=== PATIENT | male | born 1965 | race Two or more races ===

== ENCOUNTER 2020-08-21 18:30 | Emergency (ER) | payer OTHER ==
[~2020-08-21] VITALS: Ht 172.7 cm; Wt 68.0 kg
--- NOTE | 2020-08-21 18:53 | Emergency Room Report ---
History of Present Illness General Chief Complaint: Upper Extremity Injury Source: Patient Present Illness HPI 54-year-old male presents to the emergency department complaining of localized 4 out of 10 severity pain to the left ring finger since yesterday. Patient reports that a gas tank at work fell on his hand and most of the pressure was placed on his left ring finger and left pinky finger. Patient denies any pain in the pinky. Patient denies paresthesias. Patient reports difficulty with straightening the finger completely. He reports pain exacerbation upon attempts of flexing the affected finger. He denies bruising he reports some swelling. He denies open wounds or bleeding. Patient is right-hand dominant. No other aggravating or relieving factors at this time. Allergies: Coded Allergies: No Known Allergies (Unverified , 08/21/20) COVID-19 Screening Contact w/high risk pt: No Experienced COVID-19 symptoms?: No COVID-19 Testing performed TEST DESKMAN: No Patient History Past Medical History: see triage record Past Surgical History: none Pertinent Family History: none Reviewed Nursing Documentation: PMH: Agreed; PSxH: Agreed Nursing Documentation-PMH Past Medical History: No Stated History Review of Systems All Other Systems: negative except mentioned in HPI Physical Exam Vital Signs Date Time Temp Pulse Resp B/P (MAP) Pulse Ox O2 Delivery O2 Flow Rate FiO2 08/21/20 18:36 98.6 64 16 137/92 (107) 98 Room Air Sp02 EP Interpretation: reviewed, normal General Appearance: no apparent distress, alert, GCS 15, non-toxic Head: normocephalic, atraumatic Eyes: bilateral eye normal inspection, bilateral eye PERRL ENT: hearing grossly normal, normal voice Neck: full range of motion Respiratory: lungs clear, normal breath sounds, speaking full sentences Cardiovascular #1: regular rate, rhythm, normal capillary refill Musculoskeletal: normal range of motion, gait/station normal, tender - Tenderness to palpation to the DIP joint of the left ring finger. There are some swelling noted. Finger is in a fixed semiflex position at the DIP joint. Patient is unable to fully extend his finger on his own. NVI, other - Pt. with swan neck deformity. Neurologic: alert, motor strength/tone normal, oriented x3, sensory intact, responsive, speech normal Psychiatric: judgement/insight normal Lymphatic: no adenopathy Medical Decision Making PA Attestation Dr. Lagunas is my supervising Physician whom patient management has been discussed with. Diagnostic Impression: Primary Impression: Tendon injury ER Course 54-year-old male presents to the emergency department complaining of localized 4 out of 10 severity pain to the left ring finger since yesterday. Patient reports that a gas tank at work fell on his hand and most of the pressure was placed on his left ring finger and left pinky finger. Patient denies any pain in the pinky. Patient denies paresthesias. Patient reports difficulty with straightening the finger completely. He reports pain exacerbation upon attempts of flexing the affected finger. He denies bruising he reports some swelling. He denies open wounds or bleeding. Patient is right-hand dominant. No other aggravating or relieving factors at this time. Ddx considered but are not limited to Fracture, dislocation, contusion, Sprain/Strain/Spasm,Tendon injury just to name a few. Vital signs: are WNL, pt. is afebrile H&PE are most consistent with musculoskeletal injury will perform imaging to r/o fractures/dislocations. --Highly suspect tendon injury at the DIP joint of the left fourth digit as digit appears to be an swan neck deformity. ORDERS: - X-ray Left fingers 3 views - negative for fx, Dislocation, or significant soft tissue injury, per preliminary read in ED, and signed by NOLAN Scruggs, my supervising physician has reviewed, and agrees with my interpret ation. ED INTERVENTIONS: -Patient declines pain medication at this time. - Finger Splint applied to the left ring finger by network technology instructor. Pt. remains neurovascularly intact. DISCHARGE: At this time pt. is stable for d/c to home. Will provide printed patient care instructions, and any necessary prescriptions. Care plan and follow up instructions have been discussed with the patient prior to discharge. Other X-Ray Diagnostic Results Other X-Ray Diagnostic Results : X-Ray ordered: Left Fingers # of Views/Limited Vs Complete: 3 View Indication: Pain EP Interpretation: Yes NOLAN Xray: Interpretation reviewed, by supervising MD, and agrees with findings. Interpretation: no dislocation, no soft tissue swelling, no fractures Impression: No acute disease Electronically Signed by: Alida Scruggs PA-C Last Vital Signs Date Time Temp Pulse Resp B/P (MAP) Pulse Ox O2 Delivery O2 Flow Rate FiO2 08/21/20 18:36 98.6 64 16 137/92 (107) 98 Room Air Disposition: HOME, SELF-CARE Condition: Stable Scripts Ibuprofen* (MOTRIN*) 600 Mg Tablet 600 MG ORAL THREE TIMES A DAY, #20 TAB Prov: Alida Scruggs 08/21/20 Acetaminophen With Codeine (T#3) (TYLENOL #3 TAB*) Y Tab 1 TAB ORAL Q6H PRN for For Pain, #12 TAB Prov: Alida Scruggs 08/21/20 Referrals: [facility] Patient Instructions: Tendon Injury Additional Instructions: Take medications as directed. Follow up with an COUNTY ADMINISTRATOR in 3-5 days, even if your symptoms have resolved. If symptoms persist MRI may be required at the discretion of your PCP or Ortho Specialist. --Please review list of primary care clinics, if you do not already have a primary care provider who can give you an Orthopedic Referral. Return sooner to ED if new symptoms occur, or current symptoms become worse. Do not drink alcohol, drive, or operate heavy machinery while taking [place] as this may cause drowsiness. - Please note that this Emergency Department Report was dictated using [employer] supervisor technology software, occasionally this can lead to errone ous entry secondary to interpretation by the dictation equipment. Alida Scruggs Aug 21, 2020 18:53
[2020-08-21] MEDS ORDERED: IBUPROFEN600 M1 ORAL (19:21)
[2020-08-21] MEDS ORDERED: ACETAMINOPHEN-1 EAC1 ORAL (19:21)
--- NOTE | 2020-08-21 19:23 | NUR ---
ED Nurse Note: PT waked in from home, axox4, walks with a steady gait, vitals are stable on RA, breating is even and unlabored. States cherry he "smashed" his left ring finger with a gas canister today at work. his finger has pain when bending but is not swollen or discolored. Cap refill is less than 3 seconds.
[2020-08-21 19:26] VITALS: BP 135/90
[2020-08-21 20:38] VITALS: BP 115/85
--- NOTE | 2020-08-21 20:39 | NUR ---
ER DISCHARGE NOTE: Patient is cleared to be discharged per ERMD, pt is aox4, on room air, with stable vital signs. pt was given dc and prescription instructions, pt was able to verbalize understanding, pt id band removed. pt is able to ambulate with steady gait. pt took all belongings. Pt left in a private car
--- NOTE | 2020-08-22 16:28 | Diagnostic Imaging Report ---
Indication: Pain Technique: 3 views of the left fourth finger Comparison: none Findings: No acute fracture. No dislocation. Joint spaces are preserved Impression: Negative
== END 2020-08-21 20:38 | disposition home or self-care (01) ==
LOC: EMR 18:40
DX: T14.8XXA Other injury of unspecified body region, initial encounter (principal); W20.8XXA Other cause of strike by thrown, projected or falling object, initial encounter; Y92.9 Unspecified place or not applicable
CPT/HCPCS: 29130; 99283